=== PATIENT | male | born 1985 | race Caucasian/White ===

== ENCOUNTER 2016-08-30 23:12 | Emergency (ER) | payer MEDICAID ==
[~2016-08-30] VITALS: Ht 177.8 cm; Wt 93.0 kg
[2016-08-30 23:21] VITALS: BP 132/79
[2016-08-31] MEDS: IBUPROFEN 400 MG TABLET PO ONE (00:50)
--- NOTE | 2016-08-31 00:50 | NUR ---
PT NOT IN ROOM FOR DISCHARGE. PT ELOPED.
== END 2016-08-31 01:39 | disposition left against medical advice (07) ==
LOC: ER 23:12
DX: S22.32XA Fracture of one rib, left side, initial encounter for closed fracture (principal); F41.9 Anxiety disorder, unspecified; Y04.2XXA Assault by strike against or bumped into by another person, initial encounter; Y93.71 Activity, boxing; Y92.89 Other specified places as the place of occurrence of the external cause; Y99.9 Unspecified external cause status
CPT/HCPCS: 71100-TC; A4606; Z7610